=== PATIENT | female | born 1960 | race Caucasian/White ===

== ENCOUNTER 2016-11-02 23:33 | Emergency (ER) | payer OTHER ==
[~2016-11-02] VITALS: Ht 152.4 cm; Wt 82.9 kg
[~2016-11-02 23:33] MED LIST: ASPIR 8181 M1 PO; ATORVASTATIN CA40 MG PO; BUSPAR5 MG PO; CLEOCIN150 MG PO; CLEOCIN300 MG PO; CLINDAMYCIN HC150 MG PO; CLINDAMYCIN HC300 MG PO; DESYREL100 MG PO; FORTAMET500 M1 PO; HALFPRIN162 MG PO; INDOCIN25 MG PO; JANUVIA100 MG PO; LIPITOR40 MG PO; LIPITOR80 MG PO; LORAZEPAM0.5 MG PO; MOBIC15 MG PO; MOTRIN800 MG PO; NORCO 5/3251 TABLET PO; NORCO 7.5/321 TABLET PO; OXYBUTYNIN CHLOR5 M1 PO; PLAVIX75 MG PO; PRILOSEC20 MG PO; PROBIOTIC1 EAC1 PO; PROTONIX40 MG PO; REQUIP0.25 MG PO; RISPERDAL0.25 MG PO; TOPROL XL100 MG PO; TOPROL XL50 MG PO; ULTRACET1 TABLET PO; ULTRAM50 MG PO; VENLAFAXINE HC150 M1 PO; VICODIN 5-3001 EACH PO; VITAMIN D2 PO; ZOCOR40 MG PO
[2016-11-03] MEDS ORDERED: NORCO 5/3251 TABLET PO (03:03)
[2016-11-03 03:20] VITALS: BP 160/87
== END 2016-11-03 03:20 | disposition home or self-care (01) ==
LOC: EME 23:33 → EXP 23:33
DX: M25.562 Pain in left knee (principal)
CPT/HCPCS: 73564; 99281; 99284

== ENCOUNTER 2017-08-17 20:34 | Emergency (ER) | payer OTHER ==
[~2017-08-17] VITALS: Ht 152.4 cm; Wt 83.6 kg
[2017-08-17 23:25] VITALS: BP 138/76
== END 2017-08-17 23:26 | disposition home or self-care (01) ==
LOC: EME 20:34
DX: L30.9 Dermatitis, unspecified (principal); F17.200 Nicotine dependence, unspecified, uncomplicated; I10 Essential (primary) hypertension; E78.5 Hyperlipidemia, unspecified; K21.9 Gastro-esophageal reflux disease without esophagitis; I25.2 Old myocardial infarction; Z95.5 Presence of coronary angioplasty implant and graft; Z90.49 Acquired absence of other specified parts of digestive tract; Z88.0 Allergy status to penicillin; Z88.8 Allergy status to other drugs, medicaments and biological substances
CPT/HCPCS: 99281; 99283

== ENCOUNTER 2017-09-22 06:51 | Day surgery (SDC) | payer OTHER ==
[~2017-09-22] VITALS: Ht 152.4 cm; Wt 83.0 kg
[~2017-09-22 06:51] MED LIST changes: +BUSPAR10 MG PO; -BUSPAR5 MG PO; +LO-DOSE ASPIRIN81 M1 PO; +LORTAB 5-325 M1 EACH PO; +NEURONTIN300 MG PO; -RISPERDAL0.25 MG PO; +RISPERDAL0.5 MG PO
== END 2017-09-22 08:35 | disposition home or self-care (01) ==
LOC: PAIN 06:51
PROVIDERS: Anesthesiology Pain Medicine
DX: M54.16 Radiculopathy, lumbar region (principal); M51.36 Other intervertebral disc degeneration, lumbar region; M47.816 Spondylosis without myelopathy or radiculopathy, lumbar region; M19.90 Unspecified osteoarthritis, unspecified site; F17.200 Nicotine dependence, unspecified, uncomplicated; I25.10 Atherosclerotic heart disease of native coronary artery without angina pectoris; Z95.5 Presence of coronary angioplasty implant and graft; E11.9 Type 2 diabetes mellitus without complications; Z79.84 Long term (current) use of oral hypoglycemic drugs; K21.9 Gastro-esophageal reflux disease without esophagitis; I10 Essential (primary) hypertension; Z79.82 Long term (current) use of aspirin; Z88.0 Allergy status to penicillin; Z88.6 Allergy status to analgesic agent
CPT/HCPCS: 82948; J1100; J2250

== ENCOUNTER 2017-11-01 07:29 | Day surgery (SDC) | payer OTHER ==
[~2017-11-01] VITALS: Ht 152.4 cm; Wt 83.0 kg
== END 2017-11-01 09:10 | disposition home or self-care (01) ==
LOC: PAIN 07:29 → SDC 08:00 → PAIN 09:10
PROVIDERS: Anesthesiology Pain Medicine
PROC: 3E0R33Z Introduction of Anti-inflammatory into Spinal Canal, Percutaneous Approach (ICD-10-PCS; principal; 2017-11-01)
PROC: 3E0R3BZ Introduction of Anesthetic Agent into Spinal Canal, Percutaneous Approach (ICD-10-PCS; principal; 2017-11-01)
DX: M47.816 Spondylosis without myelopathy or radiculopathy, lumbar region (principal); M51.16 Intervertebral disc disorders with radiculopathy, lumbar region; I10 Essential (primary) hypertension; E11.9 Type 2 diabetes mellitus without complications; J44.9 Chronic obstructive pulmonary disease, unspecified; I25.10 Atherosclerotic heart disease of native coronary artery without angina pectoris; I25.2 Old myocardial infarction; Z88.0 Allergy status to penicillin; Z95.5 Presence of coronary angioplasty implant and graft; Z79.82 Long term (current) use of aspirin; Z79.84 Long term (current) use of oral hypoglycemic drugs; Z79.891 Long term (current) use of opiate analgesic; F17.200 Nicotine dependence, unspecified, uncomplicated
CPT/HCPCS: 82948; J1100; J2250